=== PATIENT | female | born 1945 | race Caucasian/White ===

== ENCOUNTER 2021-01-04 14:02 | Inpatient (IN) | payer MEDICARE ==
[2021-01-04] MEDS ORDERED: Ondansetron ODT 4 MG TAB PO PRN (15:53)
[2021-01-04 15:54] VITALS: BMI 20.1
[2021-01-04] MEDS: Ibuprofen 600 MG TAB PO SCH (17:55)
[2021-01-04] MEDS: traMADol HCl 50 MG TAB PO PRN (18:44)
[2021-01-04] MEDS ORDERED: Lidocaine 5% Patch TD SCH (18:45)
[2021-01-04] MEDS: Calcium Carbonate 500 MG TAB PO SCH (21:30)
[2021-01-04] MEDS: Aspirin 81 mg Enteric Coated Tablet PO SCH (21:30)
[2021-01-04] MEDS: Acetaminophen 500 MG TAB PO SCH (21:30)
[2021-01-05] MEDS: traMADol HCl 50 MG TAB PO PRN ×4 (00:40→20:09)
[2021-01-05] MEDS: Ibuprofen 600 MG TAB PO SCH ×3 (01:44→17:15)
[2021-01-05] MEDS: Acetaminophen 500 MG TAB PO SCH ×4 (01:45→20:08)
[2021-01-05 05:33] LABS: #Basophils 0.1 thou/uL (0.0-0.2); #Eosinphils 0.4 thou/uL (0.0-0.7); #Lymphocytes 0.9 thou/uL (1.20-3.40); #Monocytes 0.7 thou/uL (0.11-0.59); #Neutrophils 2.7 thou/uL (1.40-6.50); %Basophils 2.8 % (0.0-1.0); %Eosinophils 8.4 % (0.0-10.0); %Lymphocytes 18.4 % (21.0-51.0); %Monocytes 14.2 % (0.0-10.0); %Neutrophils 56.1 % (42.0-75.0); Hemoglobin 12.6 g/dL (12.0-16.0); Mean Corpuscular HGB CONC 33.4 g/dL (32.0-36.0); Mean Corpuscular Volume 95.8 fL (78.0-98.0); Mean Platelet Volume 9.1 fL (7.4-10.4); Platelet Count 212 thou/uL (130-400); RBC Distribution Width 11.5 % (11.5-14.5); Red Blood Cell (RBC) Count 3.95 mill/uL (4.20-5.40); White Blood Cell (WBC) Count 4.7 thou/uL (4.8-10.8)
[2021-01-05 05:46] LABS: Anion Gap 13 mmol/L (10-20); BUN (Urea Nitrogen) 8 mg/dL (9.8-20.1); Calc. Creatinine Clearance 74 mL/min (70-130); Calcium 9.2 mg/dL (7.8-10.44); Carbon Dioxide 25 mmol/L (23-31); Chloride 101 mmol/L (98-107); Glucose 102 mg/dL (83-110); Potassium 3.4 mmol/L (3.5-5.1); Sodium 136 mmol/L (136-145)
[2021-01-05] MEDS ORDERED: Transdermal Patch Removal TOP SCH (06:00)
[2021-01-05] MEDS: Aspirin 81 mg Enteric Coated Tablet PO SCH ×2 (08:47→20:08)
[2021-01-05] MEDS: Stress 600 With Zinc 1 TAB PO SCH (08:48)
[2021-01-05] MEDS: Calcium Carbonate 500 MG TAB PO SCH ×2 (08:48→20:08)
[2021-01-05] MEDS: Cyanocobalamin (Vitamin B-12) 1,000 MCG TAB PO SCH (08:48)
[2021-01-05] MEDS: Cholecalciferol (Vitamin D3) 5,000 UNITS CAPSULE PO SCH (08:49)
[2021-01-05] MEDS: Multivit, Therapeutic 1 TAB PO SCH (08:49)
[2021-01-05] MEDS: Enoxaparin Sodium 40 MG/0.4 ML SYRINGE SC SCH (08:49)
[2021-01-05] MEDS ORDERED: Lidocaine 5% Patch TD SCH (18:00)
[2021-01-06] MEDS: Ibuprofen 600 MG TAB PO SCH ×3 (01:47→17:14)
[2021-01-06] MEDS: Acetaminophen 500 MG TAB PO SCH ×4 (01:49→21:11)
[2021-01-06] MEDS: Aspirin 81 mg Enteric Coated Tablet PO SCH ×2 (08:21→21:12)
[2021-01-06] MEDS: Multivit, Therapeutic 1 TAB PO SCH (08:22)
[2021-01-06] MEDS: Stress 600 With Zinc 1 TAB PO SCH (08:22)
[2021-01-06] MEDS: Cyanocobalamin (Vitamin B-12) 1,000 MCG TAB PO SCH (08:22)
[2021-01-06] MEDS: Cholecalciferol (Vitamin D3) 5,000 UNITS CAPSULE PO SCH (08:22)
[2021-01-06] MEDS: Calcium Carbonate 500 MG TAB PO SCH ×2 (08:22→21:12)
[2021-01-06] MEDS: Enoxaparin Sodium 40 MG/0.4 ML SYRINGE SC SCH (08:26)
[2021-01-06] MEDS: Lidocaine 5% Patch TD SCH (08:26)
[2021-01-06] MEDS: GUANFACINE HCL 2 MG PO SCH (21:16)
[2021-01-06] MEDS: traMADol HCl 50 MG TAB PO PRN (21:17)
[2021-01-06] MEDS: Transdermal Patch Removal TOP SCH (21:19)
[2021-01-07] MEDS: Acetaminophen 500 MG TAB PO SCH ×4 (02:12→20:13)
[2021-01-07] MEDS: Ibuprofen 600 MG TAB PO SCH ×3 (02:13→17:14)
[2021-01-07] MEDS: traMADol HCl 50 MG TAB PO PRN ×4 (04:38→23:15)
[2021-01-07] MEDS: Calcium Carbonate 500 MG TAB PO SCH ×2 (08:49→20:13)
[2021-01-07] MEDS: Cyanocobalamin (Vitamin B-12) 1,000 MCG TAB PO SCH (08:49)
[2021-01-07] MEDS: Lidocaine 5% Patch TD SCH (08:49)
[2021-01-07] MEDS: Stress 600 With Zinc 1 TAB PO SCH (08:49)
[2021-01-07] MEDS: Enoxaparin Sodium 40 MG/0.4 ML SYRINGE SC SCH (08:49)
[2021-01-07] MEDS: Cholecalciferol (Vitamin D3) 5,000 UNITS CAPSULE PO SCH (08:50)
[2021-01-07] MEDS: Multivit, Therapeutic 1 TAB PO SCH (08:50)
[2021-01-07] MEDS: Aspirin 81 mg Enteric Coated Tablet PO SCH ×2 (08:50→20:12)
[2021-01-07 14:49] LABS: #Basophils 0.1 thou/uL (0.0-0.2); #Eosinphils 0.2 thou/uL (0.0-0.7); #Lymphocytes 1.2 thou/uL (1.20-3.40); #Neutrophils 4.9 thou/uL (1.40-6.50); %Basophils 1.2 % (0.0-1.0); %Eosinophils 2.9 % (0.0-10.0); %Lymphocytes 15.9 % (21.0-51.0); %Monocytes 13.8 % (0.0-10.0); %Neutrophils 66.2 % (42.0-75.0); Hemoglobin 12.7 g/dL (12.0-16.0); Mean Corpuscular HGB CONC 32.6 g/dL (32.0-36.0); Mean Corpuscular Hemoglobin 31.4 pg (27.0-31.0); Mean Corpuscular Volume 96.4 fL (78.0-98.0); Mean Platelet Volume 7.9 fL (7.4-10.4); Platelet Count 352 thou/uL (130-400); RBC Distribution Width 11.6 % (11.5-14.5); Red Blood Cell (RBC) Count 4.05 mill/uL (4.20-5.40); White Blood Cell (WBC) Count 7.3 thou/uL (4.8-10.8)
[2021-01-07] MEDS: GUANFACINE HCL 2 MG PO SCH (20:15)
[2021-01-07] MEDS: Transdermal Patch Removal TOP SCH (20:15)
[2021-01-08] MEDS: Acetaminophen 500 MG TAB PO SCH ×4 (02:02→19:37)
[2021-01-08] MEDS: Ibuprofen 600 MG TAB PO SCH ×3 (02:03→17:51)
[2021-01-08] MEDS: Cyanocobalamin (Vitamin B-12) 1,000 MCG TAB PO SCH (08:16)
[2021-01-08] MEDS: Cholecalciferol (Vitamin D3) 5,000 UNITS CAPSULE PO SCH (08:16)
[2021-01-08] MEDS: Aspirin 81 mg Enteric Coated Tablet PO SCH ×2 (08:16→20:48)
[2021-01-08] MEDS: Multivit, Therapeutic 1 TAB PO SCH (08:16)
[2021-01-08] MEDS: Stress 600 With Zinc 1 TAB PO SCH (08:16)
[2021-01-08] MEDS: Enoxaparin Sodium 40 MG/0.4 ML SYRINGE SC SCH (08:20)
[2021-01-08] MEDS: Lidocaine 5% Patch TD SCH (08:20)
[2021-01-08] MEDS: Calcium Carbonate 500 MG TAB PO SCH ×2 (08:22→20:48)
[2021-01-08] MEDS: traMADol HCl 50 MG TAB PO PRN ×3 (08:22→20:48)
[2021-01-08] MEDS: GUANFACINE HCL 2 MG PO SCH (20:53)
[2021-01-08] MEDS: Transdermal Patch Removal TOP SCH (20:53)
[2021-01-09] MEDS: Acetaminophen 500 MG TAB PO SCH ×4 (03:05→19:42)
[2021-01-09] MEDS: Ibuprofen 600 MG TAB PO SCH ×3 (03:06→17:10)
[2021-01-09] MEDS: traMADol HCl 50 MG TAB PO PRN ×3 (05:59→20:32)
[2021-01-09] MEDS: Aspirin 81 mg Enteric Coated Tablet PO SCH ×2 (09:00→20:30)
[2021-01-09] MEDS: Lidocaine 5% Patch TD SCH (09:00)
[2021-01-09] MEDS: Stress 600 With Zinc 1 TAB PO SCH (09:01)
[2021-01-09] MEDS: Cyanocobalamin (Vitamin B-12) 1,000 MCG TAB PO SCH (09:01)
[2021-01-09] MEDS: Cholecalciferol (Vitamin D3) 5,000 UNITS CAPSULE PO SCH (09:01)
[2021-01-09] MEDS: Multivit, Therapeutic 1 TAB PO SCH (09:01)
[2021-01-09] MEDS: Calcium Carbonate 500 MG TAB PO SCH ×2 (09:01→20:30)
[2021-01-09] MEDS: Enoxaparin Sodium 40 MG/0.4 ML SYRINGE SC SCH (09:03)
[2021-01-09] MEDS: Albuterol Sulfate 2.5 mg/3 ml Neb NEB SCH ×2 (17:11→20:29)
[2021-01-09] MEDS: Acyclovir 200 mg Capsule PO SCH (20:29)
[2021-01-09] MEDS: GUANFACINE HCL 2 MG PO SCH (20:31)
[2021-01-09] MEDS: Transdermal Patch Removal TOP SCH (20:34)
[2021-01-10] MEDS: Ibuprofen 600 MG TAB PO SCH ×3 (01:04→17:39)
[2021-01-10] MEDS: Acetaminophen 500 MG TAB PO SCH ×4 (01:06→19:21)
[2021-01-10] MEDS: Albuterol Sulfate 2.5 mg/3 ml Neb NEB SCH ×6 (01:07→20:07)
[2021-01-10] MEDS: traMADol HCl 50 MG TAB PO PRN ×2 (07:35→19:35)
[2021-01-10] MEDS: Lidocaine 5% Patch TD SCH (07:43)
[2021-01-10] MEDS: Cyanocobalamin (Vitamin B-12) 1,000 MCG TAB PO SCH (08:53)
[2021-01-10] MEDS: Cholecalciferol (Vitamin D3) 5,000 UNITS CAPSULE PO SCH (08:53)
[2021-01-10] MEDS: Stress 600 With Zinc 1 TAB PO SCH (08:53)
[2021-01-10] MEDS: Aspirin 81 mg Enteric Coated Tablet PO SCH ×2 (08:53→20:08)
[2021-01-10] MEDS: Multivit, Therapeutic 1 TAB PO SCH (08:54)
[2021-01-10] MEDS: Acyclovir 200 mg Capsule PO SCH ×3 (08:54→20:07)
[2021-01-10] MEDS: Enoxaparin Sodium 40 MG/0.4 ML SYRINGE SC SCH (08:54)
[2021-01-10] MEDS: Calcium Carbonate 500 MG TAB PO SCH ×2 (08:54→20:09)
[2021-01-10] MEDS: Fluticasone Propionate Nasal Spray 16 gm Bottle NASAL SCH (08:57)
[2021-01-10] MEDS: GUANFACINE HCL 2 MG PO SCH (20:09)
[2021-01-10] MEDS: Transdermal Patch Removal TOP SCH (20:09)
[2021-01-11] MEDS: Acetaminophen 500 MG TAB PO SCH ×4 (01:47→20:30)
[2021-01-11] MEDS: Ibuprofen 600 MG TAB PO SCH ×3 (01:47→17:39)
[2021-01-11] MEDS: traMADol HCl 50 MG TAB PO PRN ×4 (01:48→20:34)
[2021-01-11] MEDS: Albuterol Sulfate 2.5 mg/3 ml Neb NEB SCH ×6 (01:50→20:35)
[2021-01-11] MEDS: Multivit, Therapeutic 1 TAB PO SCH (08:21)
[2021-01-11] MEDS: Stress 600 With Zinc 1 TAB PO SCH (08:22)
[2021-01-11] MEDS: Cholecalciferol (Vitamin D3) 5,000 UNITS CAPSULE PO SCH (08:22)
[2021-01-11] MEDS: Cyanocobalamin (Vitamin B-12) 1,000 MCG TAB PO SCH (08:22)
[2021-01-11] MEDS: Acyclovir 200 mg Capsule PO SCH ×3 (08:22→20:34)
[2021-01-11] MEDS: Aspirin 81 mg Enteric Coated Tablet PO SCH ×2 (08:22→20:34)
[2021-01-11] MEDS: Fluticasone Propionate Nasal Spray 16 gm Bottle NASAL SCH (08:23)
[2021-01-11] MEDS: Calcium Carbonate 500 MG TAB PO SCH ×2 (08:25→20:34)
[2021-01-11] MEDS: Enoxaparin Sodium 40 MG/0.4 ML SYRINGE SC SCH (08:25)
[2021-01-11] MEDS: Lidocaine 5% Patch TD SCH (08:25)
[2021-01-11] MEDS ORDERED: Lidocaine 5% Patch TD SCH (17:00)
[2021-01-11] MEDS: GUANFACINE HCL 2 MG PO SCH (20:38)
[2021-01-11] MEDS: Transdermal Patch Removal TOP SCH (20:39)
[2021-01-12] MEDS: Acetaminophen 500 MG TAB PO SCH ×4 (01:29→20:09)
[2021-01-12] MEDS: Ibuprofen 600 MG TAB PO SCH ×3 (01:30→17:36)
[2021-01-12] MEDS: traMADol HCl 50 MG TAB PO PRN ×4 (01:41→20:06)
[2021-01-12] MEDS: Enoxaparin Sodium 40 MG/0.4 ML SYRINGE SC SCH (07:59)
[2021-01-12] MEDS: Lidocaine 5% Patch TD SCH (07:59)
[2021-01-12] MEDS: Fluticasone Propionate Nasal Spray 16 gm Bottle NASAL SCH (07:59)
[2021-01-12] MEDS: Multivit, Therapeutic 1 TAB PO SCH (08:00)
[2021-01-12] MEDS: Stress 600 With Zinc 1 TAB PO SCH (08:00)
[2021-01-12] MEDS: Calcium Carbonate 500 MG TAB PO SCH ×2 (08:00→20:09)
[2021-01-12] MEDS: Cholecalciferol (Vitamin D3) 5,000 UNITS CAPSULE PO SCH (08:00)
[2021-01-12] MEDS: Acyclovir 200 mg Capsule PO SCH ×3 (08:00→20:09)
[2021-01-12] MEDS: Aspirin 81 mg Enteric Coated Tablet PO SCH ×2 (08:00→20:11)
[2021-01-12] MEDS: Cyanocobalamin (Vitamin B-12) 1,000 MCG TAB PO SCH (08:00)
[2021-01-12] MEDS: Senokot S 8.6-50 MG TAB PO PRN (20:09)
[2021-01-12] MEDS: Melatonin 3 MG TAB PO SCH (20:10)
[2021-01-12] MEDS: GUANFACINE HCL 2 MG PO SCH (20:12)
[2021-01-12] MEDS: Transdermal Patch Removal TOP SCH (20:12)
[2021-01-13] MEDS: Acetaminophen 500 MG TAB PO SCH ×5 (02:09→20:12)
[2021-01-13] MEDS: traMADol HCl 50 MG TAB PO PRN ×3 (02:10→22:53)
[2021-01-13] MEDS: Ibuprofen 600 MG TAB PO SCH ×3 (02:10→17:20)
[2021-01-13] MEDS: Albuterol 200 PUFF (6.7GM INHALER) INH PRN ×2 (06:36→23:39)
[2021-01-13] MEDS: Cholecalciferol (Vitamin D3) 5,000 UNITS CAPSULE PO SCH (08:41)
[2021-01-13] MEDS: Cyanocobalamin (Vitamin B-12) 1,000 MCG TAB PO SCH (08:41)
[2021-01-13] MEDS: Stress 600 With Zinc 1 TAB PO SCH (08:41)
[2021-01-13] MEDS: Aspirin 81 mg Enteric Coated Tablet PO SCH ×2 (08:41→20:13)
[2021-01-13] MEDS: Acyclovir 200 mg Capsule PO SCH ×3 (08:41→20:13)
[2021-01-13] MEDS: Calcium Carbonate 500 MG TAB PO SCH ×2 (08:42→20:15)
[2021-01-13] MEDS: Multivit, Therapeutic 1 TAB PO SCH (08:42)
[2021-01-13] MEDS: Fluticasone Propionate Nasal Spray 16 gm Bottle NASAL SCH (08:42)
[2021-01-13] MEDS: Enoxaparin Sodium 40 MG/0.4 ML SYRINGE SC SCH (08:42)
[2021-01-13] MEDS: Lidocaine 5% Patch TD SCH (08:43)
[2021-01-13] MEDS: Melatonin 3 MG TAB PO SCH (20:15)
[2021-01-13] MEDS: GUANFACINE HCL 2 MG PO SCH (20:16)
[2021-01-13] MEDS: Transdermal Patch Removal TOP SCH (20:21)
[2021-01-14] MEDS: Acetaminophen 500 MG TAB PO SCH ×4 (02:23→19:47)
[2021-01-14] MEDS: Ibuprofen 600 MG TAB PO SCH ×3 (02:24→18:31)
[2021-01-14] MEDS: traMADol HCl 50 MG TAB PO PRN ×3 (04:58→19:48)
[2021-01-14] MEDS: Albuterol 200 PUFF (6.7GM INHALER) INH PRN (04:59)
[2021-01-14] MEDS: Enoxaparin Sodium 40 MG/0.4 ML SYRINGE SC SCH (08:01)
[2021-01-14] MEDS: Aspirin 81 mg Enteric Coated Tablet PO SCH ×2 (08:01→20:51)
[2021-01-14] MEDS: Cyanocobalamin (Vitamin B-12) 1,000 MCG TAB PO SCH (08:01)
[2021-01-14] MEDS: Stress 600 With Zinc 1 TAB PO SCH (08:01)
[2021-01-14] MEDS: Multivit, Therapeutic 1 TAB PO SCH (08:01)
[2021-01-14] MEDS: Cholecalciferol (Vitamin D3) 5,000 UNITS CAPSULE PO SCH (08:01)
[2021-01-14] MEDS: Acyclovir 200 mg Capsule PO SCH ×3 (08:01→20:51)
[2021-01-14] MEDS: Lidocaine 5% Patch TD SCH (08:01)
[2021-01-14] MEDS: Calcium Carbonate 500 MG TAB PO SCH ×2 (08:01→20:51)
[2021-01-14] MEDS: Fluticasone Propionate Nasal Spray 16 gm Bottle NASAL SCH (08:03)
[2021-01-14] MEDS: Senokot S 8.6-50 MG TAB PO PRN (08:12)
[2021-01-14] MEDS: Melatonin 3 MG TAB PO SCH (20:51)
[2021-01-14] MEDS: GUANFACINE HCL 2 MG PO SCH (20:54)
[2021-01-14] MEDS: Transdermal Patch Removal TOP SCH (20:54)
[2021-01-15] MEDS: Ibuprofen 600 MG TAB PO SCH ×3 (02:12→17:39)
[2021-01-15] MEDS: Acetaminophen 500 MG TAB PO SCH ×3 (02:12→14:46)
[2021-01-15] MEDS: Albuterol 200 PUFF (6.7GM INHALER) INH PRN (06:13)
[2021-01-15] MEDS: Fluticasone Propionate Nasal Spray 16 gm Bottle NASAL SCH (09:39)
[2021-01-15] MEDS: Enoxaparin Sodium 40 MG/0.4 ML SYRINGE SC SCH (09:40)
[2021-01-15] MEDS: Acyclovir 200 mg Capsule PO SCH ×2 (09:41→14:45)
[2021-01-15] MEDS: Cyanocobalamin (Vitamin B-12) 1,000 MCG TAB PO SCH (09:42)
[2021-01-15] MEDS: Stress 600 With Zinc 1 TAB PO SCH (09:42)
[2021-01-15] MEDS: Cholecalciferol (Vitamin D3) 5,000 UNITS CAPSULE PO SCH (09:43)
[2021-01-15] MEDS: Calcium Carbonate 500 MG TAB PO SCH (09:43)
[2021-01-15] MEDS: Aspirin 81 mg Enteric Coated Tablet PO SCH (09:43)
[2021-01-15] MEDS: Lidocaine 5% Patch TD SCH (09:43)
[2021-01-15] MEDS: Multivit, Therapeutic 1 TAB PO SCH (09:43)
[2021-01-15] MEDS: traMADol HCl 50 MG TAB PO PRN (13:13)
[2021-01-15 18:01] VITALS: BP 145/77; TEMP 98
== END 2021-01-15 18:26 | disposition home or self-care (01) | DRG 561 ==
LOC: UNDOADMIN 14:02 → MADMS 14:02
PROVIDERS: ADMIT Family Medicine; ATTEND Family Medicine
DX: S82.142D Displaced bicondylar fracture of left tibia, subsequent encounter for closed fracture with routine healing (principal); R53.81 Other malaise; I10 Essential (primary) hypertension; M81.0 Age-related osteoporosis without current pathological fracture; J45.20 Mild intermittent asthma, uncomplicated; M54.5 Low back pain; S92.425A Nondisplaced fracture of distal phalanx of left great toe, initial encounter for closed fracture; G89.29 Other chronic pain; Z88.1 Allergy status to other antibiotic agents; Z88.2 Allergy status to sulfonamides; Z88.0 Allergy status to penicillin; Z91.041 Radiographic dye allergy status; Z79.899 Other long term (current) drug therapy; Z79.82 Long term (current) use of aspirin; Z90.89 Acquired absence of other organs; Z90.710 Acquired absence of both cervix and uterus; Z98.890 Other specified postprocedural states
CPT/HCPCS: 36415; 80048; 85025; J1650; J7611

== ENCOUNTER 2022-02-20 10:00 | Emergency (ER) | payer OTHER, MEDICARE | END 2022-02-20 11:57 | disposition home or self-care (01) | LOC: MADERS 10:00 | DX: S33.8XXA Sprain of other parts of lumbar spine and pelvis, initial encounter (principal); J02.9 Acute pharyngitis, unspecified; I10 Essential (primary) hypertension; J45.909 Unspecified asthma, uncomplicated; M81.0 Age-related osteoporosis without current pathological fracture; W01.190A Fall on same level from slipping, tripping and stumbling with subsequent striking against furniture, initial encounter; Z20.822 Contact with and (suspected) exposure to COVID-19; Z87.891 Personal history of nicotine dependence; Z79.899 Other long term (current) drug therapy | CPT/HCPCS: 72220; 87081; 87430; U0003; U0005 ==